=== PATIENT | male | born 1990 | race Caucasian/White ===

== ENCOUNTER 2022-04-01 22:13 | Emergency (ER) | payer MEDICAID, SELFPAY ==
[2022-04-01 22:14] VITALS: BP 115/73; PULSE 76; RESP 14; TEMP 36.3; O2SAT 93; BMI 31.4
--- NOTE | 2022-04-01 23:43 | EDS_ITS ---
HPI History of Present Illness Chief Complaint: Cough Narrative Narrative: Patient reports 3 to 4 days of nasal congestion sore throat and cough. He denies any known sick contacts he denies any fevers chills or history of lung pathology. He states he took a COVID test as an outpatient and it was negative. He states he had concern he may be developing strep throat and secondary to this comes in for evaluation. PFSH PFS Medical History no medical history Home Medications azelastine 2 spray INTRANASAL BID #30 ml 04/01/22 [Rx Last Taken Unknown] benzonatate 200 mg PO TID PRN #30 cap 04/01/22 [Rx Last Taken Unknown] prednisone 40 mg PO DAILY 7 Days #14 tab 04/01/22 [Rx Last Taken Unknown] Allergy/AdvReac Type Severity Reaction Status Date / Time No Known Allergies Allergy Verified 04/01/22 22:14 Social History Smoking Status: Current every day smoker tobacco type: e-cigarettes ROS ROS ED Constitutional Constitutional ED: Denies chills or fever(s) ENT ENT ED: Reports rhinorrhea and sore throat Cardiovascular Cardiovascular: Denies chest pain Respiratory/Chest Respiratory/Chest: Reports cough; Denies dyspnea Gastrointestinal Gastrointestinal: Denies abdominal pain, diarrhea, nausea or vomiting Genitourinary Genitourinary ED: Denies dysuria Musculoskeletal Musculoskeletal: Denies myalgias Integumentary Denies rash Neurologic Neurologic: Denies headache(s) Hematologic/Lymphatic Hematologic/Lymphatic: Denies easy bleeding or easy bruising EXAM Physical Exam Const Vital Signs: 04/01/22 22:14 04/01/22 22:29 04/01/22 23:53 Temperature 97.3 F L Temperature Source Temporal Pulse Rate 76 79 Respiratory Rate 14 18 Respiratory Effort Normal Blood Pressure 115/73 Blood Pressure Mean 87 Pulse Ox 93 94 Oxygen Delivery Method Room Air Positive well nourished and well developed General Appearance ED: well developed HEENT HEENT Narrative: Nasal mucosa is hyperemic and boggy with enlarged inferior nasal turbinates. There is cobblestoning the posterior pharynx consistent with sinus drainage but no airway edema or compromise. No trismus change in voice or difficulty with secretions no obvious abscess noted Eyes PERRL and EOMs intact bilaterally Neck supple Neck Narrative: Positive anterior cervical lymphadenopathy present Resp normal respiratory effort and clear to auscultation bilaterally Cardio regular rate and regular rhythm GI normal to inspection, nondistended, normoactive bowel sounds, non-tender, non- distended and no masses Auscultation: normoactive bowel sounds Palpation: soft Extremity normal to inspection Neuro oriented x3 and CN's II-XII intact bilaterally Sensorium / Orientation: alert Motor Exam: strength 5/5 throughout Psych mental status grossly normal Skin no rashes or lesions noted MDM MDM MDM Narrative Medical decision making narrative: Patient presented to the ER with stable vitals and in no acute distress. His physical exam and history is most consistent with a upper respiratory infection and he does not have any physical exam findings to suggest peritonsillar abscess or obvious strep throat. With his complaint of sore throat and cough we did talk about a chest x-ray and rapid strep swab. Patient states that as I have low concern he does have pneumonia or strep he does not want those performed. Therefore patient be given symptomatic medications as he has no signs of respiratory distress or hypoxia and is ot herwise safe for discharge. Discharge Plan Triage Chief Complaint: Cough ED Provider: William Marquez Dx/Rx/DC Orders Clinical Impression: Acute upper respiratory infection Instructions: ED URI, Viral, No Abx (Adult) Prescriptions: New azelastine 137 mcg (0.1 %) aerosol,spray 2 spray intranasal BID Qty: 30 RF: 0 prednisone 20 mg tablet 40 mg PO DAILY 7 Days Qty: 14 RF: 0 benzonatate 200 mg capsule 200 mg PO TID PRN (Reason: cough) Qty: 30 RF: 0 Primary Care Provider: Care Physician,No Primary Referrals: Logan Gaines DO [STAFF PHYSICIAN] - 1 Week if not improving Care Physician,No Primary [Primary Care Provider] - Disposition Disposition: Home, Self Care Discharge Date/Time: 04/01/22 23:54
[2022-04-01 23:53] VITALS: PULSE 79; RESP 18; O2SAT 94
== END 2022-04-01 23:54 | disposition home or self-care (01) ==
PROVIDERS: Emergency Provider Emergency Medicine; Visit Provider Emergency Medicine
DX: J06.9 Acute upper respiratory infection, unspecified (principal); F17.290 Nicotine dependence, other tobacco product, uncomplicated; Z20.822 Contact with and (suspected) exposure to COVID-19
CPT/HCPCS: 99282

== ENCOUNTER 2023-04-21 21:06 | Emergency (ER) | payer MEDICAID, SELFPAY ==
[2023-04-21 21:07] VITALS: BP 150/108; PULSE 124; RESP 18; TEMP 36.8; O2SAT 99; BMI 31.6
[2023-04-21 21:35] VITALS: BP 157/95; PULSE 98; RESP 18; TEMP 36.8; O2SAT 99
[2023-04-21] MEDS: Amox/Clavulanate 875 MG Tablet PO (22:49)
[2023-04-21 22:51] VITALS: BP 136/89; PULSE 78; RESP 16; O2SAT 98
--- NOTE | 2023-04-22 00:59 | ED.VIS.DENTA ---
HPI History of Present Illness Chief Complaint: Dental Informant: patient Onset/Context/Timing Onset: Weeks (1) Context: Gradual Onset Timing: Continuous Quality: Dull, stabbing Location: Right upper molars Worsened by: Everything Relieved by: - (Nothing) Associated Symptoms Assocated Symptom - Dental: cold sensitivity and hot sensitivity; Negative for fever, jaw swelling or face swelling Narrative Narrative: Patient presents with dental pain that has been getting worse over the past week. Patient describes it as dull and stabbing. Patient states it is over the right upper molar area. Patient states he was at his dentist office earlier this week but they were unable to remove his tooth due to his blood pressure being elevated. Patient was started on antibiotics at that time. Patient states that he has been taking the antibiotics as prescribed. Patient has 2 doses of the antibiotics left. Patient states that today he noted a rash over his upper extremities and he is concerned that this may be an allergic reaction to the antibiotic. Patient does admit to some hot and cold sensitivity. Patient denies any fevers or chills. Patient denies any swelling of his jaw or face. PFSH PFSH Home Medications acetaminophen 500 mg tablet 500 mg PO Q4H PRN PRN Pain 04/21/23 [History Last Taken Unknown] amoxicillin 875 mg-potassium clavulanate 125 mg tablet 875 mg PO Q12H #20 TABLETS 04/21/23 [Rx Last Taken Unknown] azithromycin 250 mg tablet 250 mg PO DAILY 04/21/23 [History Last Taken Unknown] ibuprofen 600 mg tablet 600 mg PO Q4H PRN PRN Pain 04/21/23 [History Last Taken Unknown] Allergy/AdvReac Type Severity Reaction Status Date / Time No Known Allergies Allergy Verified 04/21/23 21:31 Surgical History History of appendectomy History of gastric bypass Hx of cholecystectomy Social History Smoking Status: Current every day smoker tobacco type: e-cigarettes ROS ROS ED Constitutional Constitutional ED: Denies chills or fever(s) Eyes Eyes: Denies blurry vision or change in vision ENT ENT ED: Denies rhinorrhea or sore throat Cardiovascular Cardiovascular: Denies chest pain or palpitations Respiratory/Chest Respiratory/Chest: Denies cough or dyspnea Gastrointestinal Gastrointestinal: Reports nausea and vomiting Genitourinary Genitourinary ED: Denies dysuria or hematuria Musculoskeletal Musculoskeletal: Denies back pain or neck pain Integumentary Reports rash; Denies abscess Neurologic Neurologic: Denies headache(s) or weakness Allergic/Immunologic Allergic/Immunologic ED: Denies mouth swelling or urticaria EXAM Physical Exam Const Vital Signs: 04/21/23 21:07 04/21/23 21:35 04/21/23 22:51 Temperature 98.3 F 98.3 F Temperature Source Temporal Oral Pulse Rate 124 H 98 78 Respiratory Rate 18 18 16 Blood Pressure 150/108 H 157/95 H 136/89 H Blood Pressure Mean 122 115 Pulse Ox 99 99 98 Oxygen Delivery Method Room Air Room Air Positive well nourished and well developed General Appearance ED: well developed and NAD HEENT Mouth ED: Yes lips normal and Yes tongue normal Mouth: lips normal and tongue normal Teeth and Gingiva: caries and gingiva abnormal Positive for gingival edema Throat: posterior oropharynx normal Neck supple and no JVD General: Negative for anterior neck swelling, tenderness or submandibular swelling Resp normal respiratory effort and clear to auscultation bilaterally Cardio regular rate and regular rhythm Neuro oriented x3, CN's II-XII intact bilaterally, moves all extremities, no focal motor deficits and no sensory deficits noted Sensorium / Orientation: alert Motor Exam: strength 5/5 throughout MDM MDM MDM Narrative Medical decision making narrative: Patient was advised that this is most likely infected dental carry. Since the patient did develop a rash while taking the Zithromax, patient was instructed to stop taking that. Patient was given a dose of Augmentin here. Patient was given a prescription for Augmentin to take instead. Patient was instructed to continue Tylenol and ibuprofen as needed for pain. Patient was instructed to follow-up with his dentist in 5 to 7 days. Patient was instructed return if worse in any way. Patient understood and was agreeable with the plan. All questions were answered. Discharge Plan Triage Chief Complaint: Dental ED Provider: Fidel Schumacher Dx/Rx/DC Orders Clinical Impression: Infected dental caries, Allergic dermatitis Instructions: ED Dental Pain, ED Dental Cavity Prescriptions: New amoxicillin-pot clavulanate [amoxicillin-pot clavulanate] 875-125 mg tablet 875 mg PO Q12H Qty: 20 0RF No Action azithromycin 250 mg tablet 250 mg PO DAILY acetaminophen 500 mg tablet 500 mg PO Q4H PRN PRN (Reason: Pain) ibuprofen 600 mg tablet 600 mg PO Q4H PRN PRN (Reason: Pain) Primary Care Provider: Care Physician,No Primary Referrals: Care Physician,No Primary [Primary Care Provider] - Disposition Disposition: Home, Self Care Discharge Date/Time: 04/21/23 22:52
== END 2023-04-21 22:52 | disposition home or self-care (01) ==
PROVIDERS: Emergency Provider Emergency Medicine; Visit Provider Emergency Medicine
DX: K02.9 Dental caries, unspecified (principal); T36.3X5A Adverse effect of macrolides, initial encounter; L27.1 Localized skin eruption due to drugs and medicaments taken internally; F17.290 Nicotine dependence, other tobacco product, uncomplicated
CPT/HCPCS: 99283

== ENCOUNTER 2023-10-25 13:02 | Emergency (ER) | payer MEDICAID, SELFPAY ==
[2023-10-25 13:03] VITALS: BP 207/110; PULSE 60; RESP 14; TEMP 37; O2SAT 99; BMI 34.7
--- NOTE | 2023-10-25 13:15 | ED.VIS.DENTA ---
HPI <REBECCA Miller - Last Filed: 10/25/23 14:05> History of Present Illness Chief Complaint: Dental Narrative Narrative: Patient presenting today due to dental pain that he has had over the past few days. He reports that he has a chipped molar that has caused him pain in the past. He is unable to get into see the dentist until next week. He denies any fever or chills. He denies a PMH of any chronic health conditions. PFSH <REBECCA Miller - Last Filed: 10/25/23 14:05> PFSH Home Medications acetaminophen 500 mg tablet 500 mg PO Q4H PRN PRN Pain 04/21/23 [History Last Taken Unknown] amoxicillin 875 mg-potassium clavulanate 125 mg tablet 875 mg (0.875 x 875-125 mg) PO Q12H #20 TABLETS 04/21/23 [Rx Last Taken Unknown] azithromycin 250 mg tablet 250 mg PO DAILY 04/21/23 [History Last Taken Unknown] ibuprofen 600 mg tablet 600 mg PO Q4H PRN PRN Pain 04/21/23 [History Last Taken Unknown] penicillin V potassium 500 mg tablet 500 mg PO 4X/DAY #39 tabs 10/25/23 [Rx Last Taken Unknown] tramadol 50 mg tablet 50 mg PO Q6H PRN pain #10 tabs 10/25/23 [Rx Last Taken Unknown] Allergy/AdvReac Type Severity Reaction Status Date / Time No Known Allergies Allergy Verified 04/21/23 21:31 Surgical History History of appendectomy History of gastric bypass Hx of cholecystectomy Social History Smoking Status: Current every day smoker tobacco type: e-cigarettes ROS <REBECCA Milelr - Last Filed: 10/25/23 14:05> ROS ED Constitutional Constitutional ED: Denies chills or fever(s) Cardiovascular Cardiovascular: Denies chest pain Respiratory/Chest Respiratory/Chest: Denies cough or dyspnea Gastrointestinal Gastrointestinal: Denies abdominal pain, nausea or vomiting Musculoskeletal Musculoskeletal: Denies arthralgias or myalgias Integumentary Denies rash Neurologic Neurologic: Denies weakness EXAM <REBECCA Miller - Last Filed: 10/25/23 14:05> Physical Exam Const Vital Signs: 10/25/23 13:03 10/25/23 13:20 10/25/23 14:06 Temperature 98.6 F Temperature Source Temporal Pulse Rate 60 68 Respiratory Rate 14 16 Blood Pressure 207/110 H 147/109 H 147/109 H Blood Pressure Mean 142 121 121 Pulse Ox 99 99 Oxygen Delivery Method Room Air Positive well nourished, well developed and no apparent distress General Appearance ED: well developed HEENT Reports normocephalic and head/scalp atraumatic HEENT Narrative: Right maxillary first molar with significant decay and visible dental carry., No dental abscess. No trismus. Mouth ED: Yes moist mucous membranes normal Throat: posterior oropharynx normal Eyes PERRL and EOMs intact bilaterally Neck full ROM and supple Chest Wall inspection of chest normal Resp normal respiratory effort and clear to auscultation bilaterally Cardio regular rate and regular rhythm GI soft to palpation, non-tender, non-distended and no masses Back/Spine normal ROM and normal to inspection Extremity normal to inspection and full ROM Neuro oriented x3, CN's II-XII intact bilaterally, moves all extremities, no focal motor deficits and no sensory deficits noted Sensorium / Orientation: awake and alert Psych mental status grossly normal and thought process normal Skin no rashes or lesions noted and no wounds <Dr. Biju Zavala MD - Last Filed: 10/25/23 15:51> Physical Exam Const Vital Signs: 10/25/23 13:03 10/25/23 13:20 10/25/23 14:06 Temperature 98.6 F Temperature Source Temporal Pulse Rate 60 68 Respiratory Rate 14 16 Blood Pressure 207/110 H 147/109 H 147/109 H Blood Pressure Mean 142 121 121 Pulse Ox 99 99 Oxygen Delivery Method Room Air MDM <REBECCA Miller - Last Filed: 10/25/23 14:05> [facility] Narrative Medical decision making narrative: Patient presenting today with dental pain. Right maxillary first molar with significant decay and obvious dental carry. No dental abscess, no signs of Ludewig's angina. He will be given Tylenol here for his pain and will be started on penicillin with first dose here. Patient will also be given a prescription for tramadol as he has been taking Tylenol and ibuprofen with little relief of his symptoms. He does have a dentist to follow-up with and has an appointment next week. He will be discharged home in stable condition and is comfortable with plan. <Dr. Biju Zavala MD - Last Filed: 10/25/23 15:51> [facility] Treatment and Re-Evaluation Narrative: I have personally performed a face to face assessment of the patient and have reviewed the RENETTA Note. I performed a substantive portion of the visit including all aspects of the following. My delgado findings include: History is dental pain right maxillary molar for couple days, no fevers or chills bleeding or discharge Exam is focal decay approximately tooth #2, tender without abscess no trismus no bleeding no gingivitis. Medical Decison Making analgesics, antibiotics, dental referral. We discussed temporary filling he declines at this time. Other additions or changes: [None] Discharge Plan Triage Chief Complaint: Dental ED Midlevel Provider: Elif Trent ED Provider: Biju Zavala Dx/Rx/DC Orders Clinical Impression: Dental caries, Pain, dental Instructions: ED Dental Cavity Prescriptions: New tramadol 50 mg tablet 50 mg PO Q6H PRN (Reason: pain) Qty: 10 0RF penicillin V potassium 500 mg tablet 500 mg PO 4X/DAY Qty: 39 0RF No Action azithromycin 250 mg tablet 250 mg PO DAILY acetaminophen 500 mg tablet 500 mg PO Q4H PRN PRN (Reason: Pain) ibuprofen 600 mg tablet 600 mg PO Q4H PRN PRN (Reason: Pain) amoxicillin-pot clavulanate [amoxicillin-pot clavulanate] 875-125 mg tablet 875 mg PO Q12H Qty: 20 0RF Primary Care Provider: Care Physician,No Primary Referrals: Care Physician,No Primary [Primary Care Provider] - Activity Restrictions/Additional Instructions: Please follow-up with your dentist and return for any worsening of your symptoms. Disposition Disposition: Home, Self Care Discharge Date/Time: 10/25/23 14:11
[2023-10-25 13:20] VITALS: BP 147/109
[2023-10-25] MEDS: Penicillin Vk 250 MG Tablet 500 MG PO (13:21)
[2023-10-25] MEDS: Acetaminophen 325 MG Tablet 650 MG PO (13:21)
[2023-10-25 14:06] VITALS: BP 147/109; PULSE 68; RESP 16; O2SAT 99
== END 2023-10-25 14:11 | disposition home or self-care (01) ==
PROVIDERS: Emergency Provider Emergency Medicine; Referring Provider Emergency Medicine; Visit Provider Emergency Medicine
DX: K02.9 Dental caries, unspecified (principal); K08.89 Other specified disorders of teeth and supporting structures; F17.290 Nicotine dependence, other tobacco product, uncomplicated
CPT/HCPCS: 99283

== ENCOUNTER 2025-11-01 12:00 | Emergency (ER) | payer BC, SELFPAY ==
[2025-11-01 12:01] VITALS: BP 144/92; PULSE 75; RESP 16; TEMP 36.6; O2SAT 100; BMI 40.8
--- NOTE | 2025-11-01 12:15 | RAD_ITS ---
PROCEDURE: KNEE 4 OR MORE VIEWS 11/01/2025 REASON FOR EXAM: PAIN. Patient to are right meniscus 1 month ago and is awaiting surgery. Twisted knee last night at work. TECHNIQUE: Procedure Code: RADKN Modality: DX Procedure: KNEE 4 OR MORE VIEWS Laterality: Right COMPARISON: None. FINDINGS: BONES: No acute fracture or suspicious osseous lesion. Well-defined 1.8 cm bone island in the proximal tibia. JOINTS: Minimal suprapatellar joint effusion. No dislocation. The joint spaces are preserved. SOFT TISSUES: The soft tissues are unremarkable. RAD/Knee 4 or More Views IMPRESSION: 1. No acute fracture or dislocation. 2. Minimal joint effusion. Reading Location: [id number]
--- NOTE | 2025-11-01 13:20 | EDS_ITS ---
HPI History of Present Illness Chief Complaint: Lower Extremity Injury Informant: patient Narrative Narrative: Patient is a 35-year-old male presenting with exacerbation of right knee pain following a recent injury. - Approximately 1.5 months ago, patient sustained a knee injury while squatting, resulting in a meniscal tear. - Has been evaluated with an MRI and is awaiting surgical intervention; initially advised against returning to work but resumed with restrictions. - Last night, reportedly twisted the knee again, resulting in severe pain and difficulty ambulating. - Describes pain as localized to the posterior aspect of the knee, with significant discomfort and inability to fully extend the leg. - Has been hobbling to get around; attempted using a wrap but found it ineffective. - Awaiting a call for surgery scheduling, with a potential date in 2 weeks; hoping for an earlier cancellation. - Reports that ibuprofen is no longer effective for pain management. - Denies any other concerns at this time. PFSH PFSH Medical History no medical history Home Medications ?Medication ?Instructions ?Recorded ?Last Taken ?Type acetaminophen 500 mg tablet 500 mg PO Q4H PRN PRN Pain 04/21/23 Unknown History amoxicillin 875 mg-potassium 875 mg (0.875 x 875-125 m g) PO 04/21/23 Unknown Rx clavulanate 125 mg tablet Q12H #20 TABLETS azithromycin 250 mg tablet 250 mg PO DAILY 04/21/23 Un known History ibuprofen 600 mg tablet 600 mg PO Q4H PRN PRN Pain 0 04/21/23 Unknown History penicillin V potassium 500 mg 500 mg PO 4X/DAY #39 tab s 10/25/23 Unknown Rx tablet tramadol 50 mg tablet 50 mg PO Q6H PRN pain #10 ta bs 10/25/23 Unknown Rx Allergy/AdvReac Type Severity Reaction Status Date / Time No Known Allergies Allergy Verified 11/01/25 12:04 Family History no significant family his Surgical History Hx of cholecystectomy History of appendectomy History of gastric bypass Surgical History no surgical history Social History Smoking Status: Current every day smoker tobacco type: e-cigarettes ROS ROS ED Constitutional Constitutional ED: Denies chills or fever(s) Musculoskeletal Musculoskeletal: Reports extremity pain; Denies neck pain Integumentary Denies Abrasions, rash or wounds Neurologic Neurologic: Denies paresthesias or weakness EXAM Physical Exam Const Vital Signs: 11/01/25 12:01 Temperature 97.9 F Temperature Source Oral Pulse Rate 75 Respiratory Rate 16 Blood Pressure 144/92 H Blood Pressure Mean 109 Pulse Ox 100 Oxygen Delivery Method Room Air Positive well nourished, well developed and obese General Appearance ED: well developed and NAD Nutritional Appearance: obese Neck full ROM and supple Back/Spine normal ROM and normal to inspection Extremity Extremity Narrative: Excellent range of motion of the right knee, limited at extreme extension but extensor mechanism is intact. There are some mild tenderness anteromedially, mild swelling, the majority of his pain is popliteal. All ligaments are stable with short endpoint on stressing no significant pain or laxity. Negative Esequiel. Negative posterior drawer. Neurovascular intact distally with strong pulse DP. Neuro oriented x3, no focal motor deficits and no sensory deficits noted Sensorium / Orientation: alert Psych mental status grossly normal and thought process normal Skin no wounds Rashes: no rashes MDM MDM MDM Narrative Medical decision making narrative: A 4-view x-ray series of the right knee, based on my interpretation, shows no acute fractures. Radiology notes a small effusion, which I concur with. His ligaments are intact and stable with short endpoints, and his distal nerve function is intact. He is comfortable at this time. I will provide pain medication, supply crutches and a wrap, and advise him to continue icing to control swelling and pain. He should follow up with orthopedics as scheduled. These findings are consistent with the internal derangement of the right knee that he already had. He may have worsened a meniscus injury, but supportive care is indicated since he is already scheduled for surgery. Radiography Diagnostic Testing: Clinical Impression(s) from Imaging Studies Knee X-Ray 11/01/25 12:15 IMPRESSION: 1. No acute fracture or dislocation. 2. Minimal joint effusion. Reading Location: [facility] Discharge Plan Triage Chief Complaint: Lower Extremity Injury ED Provider: Biju Zavala Dx/Rx/DC Orders Clinical Impression: Unspecified internal derangement of right knee, Acute meniscal injury of right knee Instructions: Knee Pain, ED Crutch Walking Prescriptions: No Action azithromycin 250 mg tablet 250 mg PO DAILY acetaminophen 500 mg tablet 500 mg PO Q4H PRN PRN (Reason: Pain) ibuprofen 600 mg tablet 600 mg PO Q4H PRN PRN (Reason: Pain) amoxicillin-pot clavulanate [amoxicillin-pot clavulanate] 875-125 mg tablet 875 mg PO Q12H Qty: 20 0RF tramadol 50 mg tablet 50 mg PO Q6H PRN (Reason: pain) Qty: 10 0RF penicillin V potassium 500 mg tablet 500 mg PO 4X/DAY Qty: 39 0RF Stand Alone Forms: ED Work / School Excuse Primary Care Provider: Care Physician,No Primary Referrals: your orthopaedic [Other] - As soon as possible Print Language: Welsh Disposition Disposition: Home, Self Care
[2025-11-01 13:43] VITALS: BP 144/92; PULSE 75; RESP 16; TEMP 36.6; O2SAT 100
--- NOTE | 2025-11-01 14:37 | CM.ED ---
Social Work Reason for visit: No PCP Patient verified that he does not currently have a PCP.. [facility] provider list along with [facility] brochure was given to patient, patient appreciative of same. Jimena Hudson, INFORMATICS CONSULTANT, PITCHING COACH
== END 2025-11-01 13:44 | disposition home or self-care (01) ==
PROVIDERS: Emergency Provider Emergency Medicine; Visit Provider Emergency Medicine
DX: S83.206A Unspecified tear of unspecified meniscus, current injury, right knee, initial encounter (principal); M23.91 Unspecified internal derangement of right knee; X58.XXXA Exposure to other specified factors, initial encounter; Y93.89 Activity, other specified; F17.290 Nicotine dependence, other tobacco product, uncomplicated
CPT/HCPCS: 73564; 99283